=== PATIENT | male | born 1975 | race Hispanic/Latino ===

== ENCOUNTER 2017-06-21 14:44 | Emergency (ER) | payer OTHER ==
[2017-06-21 15:29] LABS: Urine Drugs of Abuse Note Disclamer
[2017-06-21 15:33] LABS: Basophils % (Auto) 0.6 % (0.0-1.8); Hematocrit 42.5 % (35.5-45.6); Hemoglobin 14.5 gm/dl (11.8-15.2); Mean Corpuscular HGB Conc 34 % (32-34); Mean Corpuscular Hemoglobin 31 pg (28-32); Mean Corpuscular Volume 91 fl (84-94); Platelet Count 238 K/mm3 (140-440); Red Blood Count 4.66 M/mm3 (3.65-5.03); Red Cell Distribution Width 14.1 % (13.2-15.2); White Blood Count 10.1 K/mm3 (4.5-11.0)
[2017-06-21 15:39] LABS: Bilirubin,Urine NEG (Negative); Blood,Urine NEG (Negative); Ketones,Urine NEG (Negative); Leukocyte Esterase,Urine NEG (Negative); Nitrite,Urine NEG (Negative); Protein,Urine <15 mg/dL mg/dL (Negative); Urobilinogen,Urine < 2.0 mg/dL (<2.0)
[2017-06-21 15:48] LABS: Anion Gap 14 mmol/L; BUN/Creatinine Ratio 17; Blood Urea Nitrogen 12 mg/dL (9-20); Calcium 8.7 mg/dL (8.4-10.2); Carbon Dioxide 27 mmol/L (22-30); Chloride 102.1 mmol/L (98-107); Glucose 89 mg/dL (75-100); Potassium 3.7 mmol/L (3.6-5.0); Sodium 139 mmol/L (137-145)
--- NOTE | 2017-06-21 16:47 | Emergency Department Report ---
ED Psych HPI - General Chief Complaint: Psych Stated Complaint: MH EVAL/SUICIDAL Time Seen by Provider: 06/21/17 16:13 Source: patient, police Mode of arrival: Stretcher - History of Present Illness Initial Comments: Patient is 41 years old male history of PTSD, he stated that he is feeling very depressed and he tried to kill himself today by shooting himself. Patient stated that he had a marriage receptionist doctor's office last night that did not go well and he is feeling like he does not want to live anymore. He denied any auditory or visual hallucination but he admitted to severe nightmares. MD Complaint: suicidal ideation, feels depressed -: Gradual Associated Psychiatric Symptoms: depression, suicidal ideation History of same: Yes Quality: constant Context: significant life stressor Associated Symptoms: denies other symptoms If Self Harm: admits thoughts of, has plan, has acted on plan - Related Data Home Medications Medication Instructions Recorded Confirmed Last Taken Venlafaxine [Effexor 37.5mg tab] 37.5 mg PO QDAY 06/21/17 06/21/17 1 Day Ago ~06/20/17 Allergies Allergy/AdvReac Type Severity Reaction Status Date / Time Penicillins Allergy Swelling Verified 06/21/17 15:04 ED Review of Systems ROS: Stated complaint: MH EVAL/SUICIDAL Other details as noted in HPI Comment: All other systems reviewed and negative Constitutional: denies: chills, fever ENT: denies: throat pain Respiratory: denies: cough, orthopnea, shortness of breath Cardiovascular: denies: chest pain, palpitations, dyspnea on exertion Gastrointestinal: denies: abdominal pain, nausea, vomiting, diarrhea Neurological: denies: headache, weakness, numbness, paresthesias Psychiatric: depression, suicidal thoughts ED Past Medical Hx - Past Medical History Hx Hypertension: Yes (NOT TAKING MEDS AT THIS TIME) Hx Psychiatric Treatment: Yes (PTSD) - Surgical History Past Surgical History?: No - Social History Smoking Status: Never Smoker Substance Use Type: None - Medications Home Medications: Home Medications Medication Instructions Recorded Confirmed Last Taken Type Venlafaxine [Effexor 37.5mg tab] 37.5 mg PO QDAY 06/21/17 06/21/17 1 Day Ago History ~06/20/17 ED Physical Exam - General Limitations: No Limitations General appearance: alert, in no apparent distress - Head Head exam: Present: atraumatic, normocephalic, normal inspection - Eye Eye exam: Present: normal appearance, PERRL - ENT ENT exam: Present: normal exam - Neck Neck exam: Present: normal inspection, tenderness, full ROM - Respiratory Respiratory exam: Present: normal lung sounds bilaterally. Absent: respiratory distress, wheezes, rales, rhonchi, stridor, chest wall tenderness, accessory muscle use, decreased breath sounds, prolonged expiratory - Cardiovascular Cardiovascular Exam: Present: regular rate, normal rhythm, normal heart sounds - GI/Abdominal GI/Abdominal exam: Present: soft, normal bowel sounds. Absent: distended, tenderness, guarding, rebound, rigid, mass, bruit, pulsatile mass, hernia - Extremities Exam Extremities exam: Present: normal inspection, full ROM, normal capillary refill - Back Exam Back exam: Present: normal inspection. Absent: CVA tenderness (R), CVA tenderness (L) - Neurological Exam Neurological exam: Present: alert, oriented X3, CN II-XII intact, normal gait - Psychiatric Psychiatric exam: Present: depressed, suicidal ideation. Absent: agitated, anxious, flat affect, manic, homicidal ideation - Skin Skin exam: Present: warm, intact, normal color ED Course Vital Signs 06/21/17 14:56 Temperature 98.1 F Pulse Rate 74 Blood Pressure 145/86 O2 Sat by Pulse 98 Oximetry ED Medical Decision Making - Lab Data Result diagrams: 06/21/17 15:17 06/21/17 15:17 Critical care attestation.: If time is entered above; I have spent that time in minutes in the direct care of this critically ill patient, excluding procedure time. ED Disposition Clinical Impression: Suicidal ideation Disposition: [id number]/[id number] PSY HOSP/PSY UNIT Is pt being admited?: No Condition: Stable Referrals: PRIMARY CARE, [Primary Care Provider] - 3-5 Days
[2017-06-22 12:17] VITALS: BP 152/87
--- NOTE | 2017-06-22 14:15 | Consultation ---
History of Present Illness - Reason for Consult Consult date: 06/22/17 Reason for consult: Mental Health Evaluation Requesting physician: JAZMIN CANCHOLA - Chief Complaint Chief complaint: "I wanted to " - History of Present Psychiatric Illness Patient is 41 years old white male presenting to [facility] for attempting to shoot himself. Today patient is calm and cooperative, but withdrawn during the assessment. He stated that he went to a wedding outpatient receptionist and "all hell broke out" between family. Also, he stated that he is having relationship issues that' s "overwhelming." He stated that he decided to kill himself by using a gun. He stated that the family dispute at the wedding outpatient receptionist was to much to handle. He admitted to a prior suicide attempt by overdosing on pills a couple years ago. He stated struggling with depression and PTSD since being in the [employer]. He stated that he witnessed civilians commit suicide. He stated that he need to identify more coping skills he can use when in crisis. He denies SI/HI' s and AVH's. He denies sleep disturbance and a poor appetite. He denies recreational drug use and excessive alcohol consumption (etoh). Medications and Allergies Allergies Allergy/AdvReac Type Severity Reaction Status Date / Time Penicillins Allergy Swelling Verified 06/21/17 15:04 Home Medications Medication Instructions Recorded Confirmed Last Taken Type Venlafaxine [Effexor 37.5mg tab] 37.5 mg PO QDAY 06/21/17 06/21/17 1 Day Ago History ~06/20/17 Past psychiatric history - Past Medical History Past Medical History: hypertension Past Surgical History: No surgical history - past Psychiatric treatment and history Psych: Depression psychiatric treatment history: Out[facility]. Denies a fam psy hx depression. - Social History Social history: lives with family Mental Status Exam - Vital signs Last Vital Signs Temp 98.9 F 06/22/17 12:05 Pulse 82 06/22/17 12:05 Resp 18 06/22/17 12:05 BP 152/87 06/22/17 12:05 Pulse Ox 99 06/22/17 12:05 - Exam Narrative exam: MSE: Appearance: calm, cooperative Behavior: regular eye contact Speech: regular rate and tone Mood: "down" withdrawn Affect: flat Thought Process: linear Thought Content: denies SI/HI's and AVH's Motor Activity: ambulatory Cognition: A/O x3 Insight: fair Judgment: variable Results Result Diagrams: 06/21/17 15:17 06/21/17 15:17 Abnormal lab results 06/21/17 06/21/17 Range/Units 15:17 15:17 Colbert % (Auto) 9.9 H (0.0-7.3) % Colbert # 1.0 H (0.0-0.8) K/mm3 Creatinine 0.7 L (0.8-1.5) mg/dL All other labs normal. Assessment and Plan Assessment and plan: Impression: MDD Severe Type. PTSD. Today patient is calm and cooperative, but withdrawn during the assessment. DDx: R/O Bipolar Recommendation/Plan: Continue 1013 with placement to [place].
== END 2017-06-22 11:50 ==
LOC: ED 14:44
CPT/HCPCS: 36415 ×2; 80048 ×2; 80307 ×2; 80320; 81001 ×2; 85025 ×2; 99285 ×2; G0480